=== PATIENT | male | born 1950 | race Caucasian/White ===

== ENCOUNTER → 2019-07-07 | Outpatient (CLI) | payer BC | END | disposition home or self-care (01) | LOC: LABPAT 07:57 | PROVIDERS: ATTEND Orthopaedic Surgery | DX: Z01.812 Encounter for preprocedural laboratory examination (principal); M16.11 Unilateral primary osteoarthritis, right hip | CPT/HCPCS: 87070 ==

== ENCOUNTER 2019-07-17 08:38 | Inpatient (IN) | payer BC, MEDICARE ==
[2019-07-05 16:06] VITALS: BMI 26.5
--- NOTE | 2019-07-16 11:22 | HP ---
HISTORY AND PHYSICAL REASON FOR ADMISSION: Surgery scheduled for 07/17/2019. Ilir Mccann is a 69-year-old patient seen with symptomatic right hip osteoarthritis. We discussed options for treatment. He elected to proceed with right total hip arthroplasty. Consent regarding the procedure was obtained. Clearance was provided by Dr. Yeison Kim. PAST MEDICAL HISTORY: Lhd-cakiseu-zjxzktxgx diabetes, hypertension. PAST SURGICAL HISTORY: Noncontributory. DAILY MEDICATIONS: [place], lisinopril. ALLERGIES: None. SOCIAL HISTORY: Denies current tobacco use. PHYSICAL EXAMINATION: Evaluation of the right hip: He has diffuse pain. Very limited range of motion with significant pain. Positive hip impingement sign. Straight leg raise negative. His distal neurovascular exam is intact. RADIOGRAPHS: Right hip radiographs reveal severe osteoarthritic changes. IMPRESSION: 1. Right hip osteoarthritis. 2. Hypertension. 3. Mcb-cyzdlww-jamwqhokt diabetes. 4. Chronic opioid use. PLAN: Right total hip arthroplasty. Surgery scheduled for 07/16. MMODL / IJN: [id number] /
[~2019-07-17 08:38] MED LIST: ACETAMINOPHEN TAB 500 MG TAB PO ONE; HYDROmorphone 0.5 MG/0.5 ML SYRINGE IVP PRN; LACTATED RINGERS 1,000 ML IV SCH; MELOXICAM 7.5 MG TAB PO ONE; ONDANSETRON 4 MG/2 ML VIAL IVP ONE; ROPIVACAINE 246.25 MG, EPINEPHrine 0.5 MG, KETOROLAC 30 MG, cloNIDine HCL/PF 80 MCG, WA... MISCELLANE ONE; TRANEXAMIC ACID 1,000 MG in SODIUM CHLORIDE 0.9% 100 ML IVPB ONE
[2019-07-17 12:02] LABS: Glucose,Whole Blood 115 mg/dL (75-99)
[2019-07-17] MEDS ORDERED: LIDOCAINE 1% (10MG/ML) FOR IV START INTRADERMA ONE (12:10)
[2019-07-17] MEDS ORDERED: LACTATED RINGERS 1,000 ML IV ONE ×3 (12:11→16:22)
[2019-07-17] MEDS ORDERED: fentaNYL (PF) 50 MCG/ML 2 ML AMP ONE (13:25)
[2019-07-17] MEDS ORDERED: PROPOFOL 10 MG/ML 20 ML VIAL IV ONE (13:25)
[2019-07-17] MEDS ORDERED: MIDAZOLAM 2 MG/2 ML VIAL ONE (13:25)
--- NOTE | 2019-07-17 15:15 | FL ---
EXAMINATION TYPE: FL guidance operating room, XR Hip Limited RT DATE OF EXAM: 07/17/2019 CLINICAL HISTORY: Right hip pain and osteoarthritis. TECHNIQUE: Fluoroscopy. Limited intraoperative views right hip. COMPARISON: Outside right hip x-ray June 23, 2019.. FINDINGS: Fluoroscopic guidance was provided during hip replacement procedure performed by Dr. French blair. A total of 22 seconds of fluoroscopic time was utilized during the procedure and single spot i ntraoperative image is acquired. Single image acquired shows metallic hardware from total hip arthroplasty satisfactory in position on frontal projection. IMPRESSION: As Above.
--- NOTE | 2019-07-17 15:26 | P.OP ---
Date of Procedure: 07/17/19 Preoperative Diagnosis: Right hip osteoarthritis Postoperative Diagnosis: Right hip osteoarthritis Procedure(s) Performed: Direct anterior right total hip arthroplasty Implants: 1. Depuy Corail KA size 10 standard collar press-fit femoral stem 2. Depuy pinnacle 56 mm press-fit acetabular shell 3. Depuy pinnacle neutral polyethylene acetabular liner 36 mm ID 56 mm OD 4. Biolox delta ceramic femoral head +1.5 36 mm Anesthesia: local, spinal Surgeon: Jose Manuel Ashley Blocker Automatic #1: Pawan Pastrana Estimated Blood Loss (ml): 125 Pathology: other (Femoral head) Condition: stable Disposition: PACU Indications for Procedure: 69-year-old patient seen with symptomatic right hip osteoarthritis. After treatment options were discussed with him, he elected to proceed with total hip arthroplasty. Operative Findings: See description of procedure Description of Procedure: The patient was taken to the operative suite. Patient underwent a spinal anesthetic by the department of anesthesia. Patient was then transferred to the [place] table. Patient was given preoperative IV antibiotics and TXA. Both lower extremities were placed in standard leg spars. The hip was then prepped and draped in the normal sterile orthopedic fashion. A standard anterior incision was made beginning 3 cm lateral and 1 cm distal to the ASIS extending 10 cm. Dissection was then carried down through the subcutaneous soft tissues down to the fascia overlying the tensor fascia claire. An incision was now made through the fascia. Careful dissection was taken down exposing the tensor fascia claire muscle. A Cobra retractor was now placed along the medial femoral neck and a second one along the lateral femoral neck. The venous circumflex vessels were now identified, cauterized and clipped. We identified the anterior hip capsule. An incision was made through the hip capsule along the lateral border. I performed a partial anterior capsulectomy. Retractors were now placed around the femoral neck itself. A femoral neck cut was now made with a sagittal saw. It was completed with an osteotome at the lateral neck area. The femoral head was now removed without difficulty. The extremity was now rotated to 60 of external rotation. It was locked in position. Residual labrum was now debrided out. Serial reaming was performed of the acetabulum while Hernesto YUEN assisted holding an anterior retractor for exposure. Once we reached the appropriate size and a trial was position and fit nicely. The appropriate size was now chosen opened and made available. It was introduced into the acetabulum without difficulty. The C-arm/fluoroscopy was now brought into the operative field. We made sure we had a true AP pelvic view. We now under direct C- arm/fluoroscopy introduced into the acetabular component with appropriate version and inclination. I held the cup in appropriate position well Hernesto YUEN used a mallet to seat the acetabular component. I noted the component now to be well seated and stable. Acetabular cup introduce her was removed. The C-arm was pulled back. An appropriate liner was introduced and clicked into position. It was felt to be stable. At this point retractors were removed. The extremity was now placed into 130 external rotation with no traction. The leg was now dropped to the ground and adducted. Appropriate retractors were now positioned along the proximal femur. We also placed our femoral look into position. Additional capsular releasing was performed to gain access to the proximal femur. We now used a box osteotome. A canal finder was now utilized. Serial broaching was now performed with the assistance of Hernesto YUEN tapping the broaches down with a mallet while held the broach in appropriate rotation and position. This was done until we reached the appropriate size with good overall rotational stability. Appropriate calcar planing was performed. A trial head/neck was placed into position. The hip was now reduced. The C- arm/fluoroscopy was brought back into the operative field. An AP pelvis was first obtained to make sure we had reasonable leg length, it appeared to be the case. I then reviewed the trial components which appear to be satisfactorily positioned. The C-arm/fluoroscopy was pulled back. Retractors were repositioned and the hip was dislocated. The leg was again taken down to the ground and adducted. Appropriate retractors were repositioned as well as the femoral hook. All trial components were removed. The femoral implant was opened along with the femoral head. The femoral implant was introduced on the appropriate handle into our pre-broached area. I held the component position well Hernesto YUEN used a mallet to seat the femoral component. The femoral component was now noted to be well seated and stable.. The femoral head was introduced with good positioning and fixation noted. Retractors were now removed. The hip was now reduced. There appeared be good positioning of the hip confirmed on intraoperative fluoroscopy. Spot films were obtained to document this. A second gram of TXA was given. The deep and superficial soft tissues were infiltrated with local analgesic. Bipolar cautery had been utilized intermittently through the procedure for hemostasis. The wound was irrigated copiously with pulse lavage mechanical irrigation. The fascia was repaired with Vicryl suture. The subcutaneous soft tissues were repaired in layers with Vicryl suture. The skin was approximated with pernio/Dermabond. Sterile dressings were applied. Patient was then awakened, transferred to a bed and taken to recovery in stable condition. Hernesto YUEN assisted with the complex procedure.
[2019-07-17] MEDS ORDERED: NALOXONE 0.4 MG/ML 1 ML VIAL IV PRN (15:27)
[2019-07-17] MEDS ORDERED: HYDROcodone/APAP 5-325MG 1 EACH TAB PO PRN ×2 (15:27)
[2019-07-17] MEDS ORDERED: HYDROmorphone 0.5 MG/0.5 ML SYRINGE IVP PRN ×3 (15:27)
[2019-07-17] MEDS ORDERED: ONDANSETRON 4 MG/2 ML VIAL IVP PRN (15:27)
[2019-07-17] MEDS ORDERED: HYDROcodone/APAP 10-325MG 1 EACH TAB PO PRN (16:01)
[2019-07-17] MEDS ORDERED: SENNOSIDES-DOCUSATE SODIUM 1 EACH TAB PO SCH (21:00)
[2019-07-17] MEDS: LACTATED RINGERS 1,000 ML IV SCH (21:01)
[2019-07-17] MEDS: HYDROcodone/APAP 10-325MG 1 EACH TAB PO PRN (21:02)
[2019-07-18 01:09] LABS: Glucose,Whole Blood 191 mg/dL (75-99)
[2019-07-18] MEDS: LACTATED RINGERS 1,000 ML IV SCH (04:07)
[2019-07-18 07:43] VITALS: BP 107/68; PULSE 80; RESP 16; TEMP 98.3
[2019-07-18 07:48] LABS: Basophils % (A) 0 %; Eosinophils # (A) 0.1 k/uL (0-0.7); Eosinophils % (A) 1 %; HCT 37.9 % (39.0-53.0); HGB 12.8 gm/dL (13.0-17.5); Lymphocytes # (A) 2.2 k/uL (1.0-4.8); Lymphocytes % (A) 16 %; MCH 30.8 pg (25.0-35.0); MCHC 33.8 g/dL (31.0-37.0); MCV 91.3 fL (80.0-100.0); Monocytes # (A) 0.8 k/uL (0-1.0); Monocytes % (A) 6 %; Neutrophils # (A) 10.7 k/uL (1.3-7.7); Neutrophils % (A) 77 %; Platelet Count 254 k/uL (150-450); RBC 4.15 m/uL (4.30-5.90); RDW 13.1 % (11.5-15.5); WBC 13.9 k/uL (3.8-10.6)
[2019-07-18] MEDS ORDERED: MELOXICAM 7.5 MG TAB PO SCH (09:00)
[2019-07-18] MEDS ORDERED: ENOXAPARIN 40 MG/0.4 ML SYRINGE SQ SCH (09:00)
[2019-07-18] MEDS ORDERED: FAMOTIDINE 20 MG TAB PO SCH (09:00)
--- NOTE | 2019-07-18 10:27 | P.PN ---
Subjective Progress Note Date: 07/18/19 Principal diagnosis: status post direct anterior right total hip arthroplasty Patient was evaluated at bedside today, he is resting comfortably. He has ambulated parallel with physical therapy. His pain is well-controlled. Patient denies any chest pain, shortness of breath, fever or chills. Objective - Vital Signs Vital signs: Vital Signs Temp 98.3 F 07/18/19 07:42 Pulse 80 07/18/19 07:42 Resp 16 07/18/19 07:42 BP 107/68 07/18/19 07:42 Pulse Ox 96 07/18/19 07:42 Intake & Output 07/17/19 07/18/19 07/18/19 18:59 06:59 18:59 Intake Total 2049 Output Total 125 1000 Balance 1924 -999 Weight 82.3 kg Intake: IV 2049 Output: Urine 1000 Estimated Blood Loss 125 Other: Voiding Method Toilet Toilet # Voids 2 - Exam Right lower extremity: Incision is clean, dry, and intact. The exofin fusion tape is in good condition. There is minimal soft tissue swelling and ecchymosis surrounding the medial and lateral aspects of the incision. Calf is soft, no tenderness with palpation. Plantar flexion, dorsiflexion, EHL, FHL are intact. Sensory exam to light touch throughout the extremity is intact, dorsal pedis pulses 2+. - Labs CBC & Chem 7: 07/18/19 06:50 Labs: Abnormal Lab Results - Last 24 Hours (Table) 07/17/19 07/18/19 07/18/19 Range/Units 12:00 01:00 06:50 WBC 13.9 H (3.8-10.6) k/uL RBC 4.15 L (4.30-5.90) m/uL Hgb 12.8 L (13.0-17.5) gm/dL Hct 37.9 L (39.0-53.0) % Neutrophils # 10.7 H (1.3-7.7) k/uL POC Glucose (mg/dL) 115 H 191 H (75-99) mg/dL Assessment and Plan Assessment: Postoperative day #1 status post direct anterior right total hip arthroplasty Plan: pain control, patient does take [place] 10 mg/325 mg home, he was instructed to resume that medication GI and DVT prophylaxis, aspirin 81 mg twice a day for 1 month Wound care instructions were discussed Icing and elevating techniques discussed Home physical therapy and nursing after discharge Medical recommendations Plan for discharge home today
--- NOTE | 2019-07-18 10:28 | P.DS ---
Providers Date of admission: 07/17/19 11:25 Expected date of discharge: 07/18/19 Attending physician: Jose Manuel Ashley Consults: 07/17/19 15:27 Consult Physician Routine Consulting Provider: Yeison Kim Consult Reason/Comments: Medical management Do you want consulting provider notified?: Yes Primary care physician: Yeison Kim Hospital Course: Date of admission: 07/17/2019 Date of discharge: 07/18/2019 Admission diagnosis: Status post direct anterior right total hip arthroplasty Discharge diagnosis: Same Attending physician: Dr. Ashley Surgical procedures: Direct anterior right total hip arthroplasty Brief history: Patient is a 69-year-old male with a history of progressive primary right hip osteoarthritis. At this point patient has failed conservative treatment measures and has opted to proceed with a elective direct anterior right total hip arthroplasty. Hospital course: Details of patient's surgery can be found in operative report. Patient tolerated the procedure well and was subsequently transported to orthopedic floor. Patient's orthopeidc and medical care was provided daily. Patient had daily laboratory tests performed for evaluation of overall blood counts. Patient had daily physical therapy to include strengthening range of motion as well as education with walker ambulation. Patient was treated with Lovenox for their postoperative DVT prophylaxis during their inpatient stay. Patient was noted to have a relatively uneventful postoperative course. Patient reported satisfactory pain control with oral pain medications by postoperative day 0. Patient showed satisfactory progress with physical therapy. Patient moved steadily through the program and had no difficulty meeting the goals by postoperative day 1. Given patient's otherwise satisfactory course and having met physical therapy goals, plan is to discharge patient home on postoperative day 1. Discharge condition/disposition: Patient will be discharged home in stable co ndition. Discharge medications: Instructions are given on resumption of patient's normal daily medications per primary care recommendation, in addition patient will be prescribed aspirin 81 mg. Discharge instructions: 1. Wound care and infection precautions, keep incision dry and covered while showering, no lotions, creams, moisturizers. No soaking, tubs, pools, hottubs. Do not scrub over the incision. 2. Weight-bear as tolerated with walker / cane until follow-up. 3. Ice and elevate when necessary. Do not exceed 20 minutes per hour with ice pack. 4. Utilize compression sleeve until seen at first follow up appointment. 5. Visiting nursing care. 6. Home physical therapy. 7. Pain meds and anticoagulants per prescription. 8. Pain medication has potential to cause constipation. Increase oral fluid and fiber intake. Contact primary care provider if you have not had a bowel movement within 48 hours after discharge 9. No anti-inflammatory medication until discussed at first post operative visit, this including Motrin, Aleve, Mobic, Diclofenac. 10. Follow up in office at 2 weeks postop with Hernesto Pastrana PA-C 11. Follow up with your primary care doctor 7-10 days after discharge. 12. Contact [facility] with any questions, . Procedures: Direct anterior right total hip arthroplasty Patient Condition at Discharge: Good Plan - Discharge Summary Discharge Rx Participant: No New Discharge Prescriptions: New Aspirin [Adult Low Dose Aspirin EC] 81 mg PO BID #60 tablet.dr Johnson Action HYDROcodone/APAP 10-325MG [[place] 10-325] 1 tab PO HS Lisinopril 40 mg PO DAILY Discharge Medication List HYDROcodone/APAP 10-325MG [[place] 10-325] 1 tab PO HS 03/12/15 [History] Lisinopril 40 mg PO DAILY 07/05/19 [History] Aspirin [Adult Low Dose Aspirin EC] 81 mg PO BID #60 tablet. 07/18/19 [Rx] Follow up Appointment(s)/Referral(s): Yeison Kim MD [Primary Care Provider] - 1 Week Pawan Pastrana PAC [PHYSICIAN MARINE ENGINE MECHANIC] - 08/02/19 1:30 pm () Activity/Diet/Wound Care/Special Instructions: Orthopedic Discharge Instructions: 1. Wound care and infection precautions, keep incision dry and covered while showering, no lotions, creams, moisturizers. No soaking, pools, hot tubs. Do not scrub over incision. 2. Weight-bear as tolerated with walker / cane until follow-up. 3. Ice and elevate when necessary. Do not exceed 20 minutes per hour with ice pack. 4. Utilize compression sleeve until seen at first follow up appointment. 5. Pain meds and anticoagulants per prescription. 6. Pain medication has potential to cause constipation. Increase oral fluid and fiber intake. Contact primary care provider if you have not had a bowel movement within 48 hours after discharge. 7. No anti-inflammatory medication until discussed at first post operative visit, this including Motrin, Aleve, Mobic, Diclofenac. 8. Follow up in office at 2 weeks postop with Hernesto Pastrana PA-C 9. Follow up with your primary care doctor 7-10 days after discharge. 10. Contact [facility] with any questions, . Discharge Disposition: HOME WITH HOME HEALTH SERVICES
[2019-07-18] MEDS: HYDROcodone/APAP 10-325MG 1 EACH TAB PO PRN (10:36)
== END 2019-07-18 12:50 | disposition home or self-care (01) | DRG 470 ==
LOC: 2ORMAIN 11:25 → EDSTATUS 12:55 → 4SSUR 16:19
PROVIDERS: ADMIT Orthopaedic Surgery; ATTEND Orthopaedic Surgery
PROC: 0SR904A Replacement of Right Hip Joint with Ceramic on Polyethylene Synthetic Substitute, Uncemented, Open Approach (ICD-10-PCS; principal; 2019-07-17 12:55)
DX: M16.11 Unilateral primary osteoarthritis, right hip (principal); E11.9 Type 2 diabetes mellitus without complications; I10 Essential (primary) hypertension; G31.84 Mild cognitive impairment of uncertain or unknown etiology; N40.1 Benign prostatic hyperplasia with lower urinary tract symptoms; R35.0 Frequency of micturition; E66.3 Overweight; Z68.26 Body mass index [BMI] 26.0-26.9, adult; Z87.891 Personal history of nicotine dependence; Z79.84 Long term (current) use of oral hypoglycemic drugs; Z79.891 Long term (current) use of opiate analgesic; Z79.899 Other long term (current) drug therapy
CPT/HCPCS: 36415; 73501; 85025; 86850; 86900; 86901; 88300

== ENCOUNTER → 2020-02-19 | Outpatient (CLI) | payer BC ==
--- NOTE | 2020-02-23 19:48 | HM ---
HOLTER MONITOR REPORT REFERRING: Dr. Kim. INDICATION: Palpitations. The patient was monitored for 24 hours. The baseline rhythm appeared to be sinus with a minimum heart rate of 46, max 120 and average of 70 beats per minute. Ventricular ectopic events presented in less than 1% of the total beats count. Supraventricular ectopic events presented in less than 1% of the total beats count and presented mainly as PACs and one episode of nonsustained atrial tachycardia noted. No evidence of any sinus pause or sinus arrest seen. No evidence of any advanced AV block seen. CONCLUSION: 1. Sinus rhythm as a baseline mechanism. 2. Rare ventricular ectopic events. 3. Rare supraventricular ectopic events. 4. The patient did have one short episode of atrial tachycardia. 5. No evidence of sinus pause or sinus arrest. 6. The patient reported no symptoms. MMODL / IJN: [id number] /
== END | disposition home or self-care (01) ==
LOC: RADECHMAIN 12:13
PROVIDERS: ATTEND Family Medicine
DX: I47.1 Supraventricular tachycardia (principal)
CPT/HCPCS: 93225; 93226

== ENCOUNTER → 2021-09-03 | Outpatient (CLI) | payer BC ==
[2021-09-03 10:36] LABS: HGB 15.3 g/dL (13.0-17.0); MCH 30.1 pg (27.0-32.0); MCHC 33.3 g/dL (32.0-37.0); MCV 90.6 fL (80.0-97.0); Mean Platelet Volume 9.5 fL (9.5-12.2); NRBC Per 100 WBC 0 /100 WBCS (0.0-0.0); Platelet Count 223 X 10*3/uL (140-440); RBC 5.08 X 10*6/uL (4.40-5.60); RDW 12.9 % (11.5-14.5); WBC 7.68 X 10*3/uL (4.50-10.00)
[2021-09-03 10:58] LABS: ALT 15 U/L (10-49); AST 16 U/L (14-35); African American GFR (CKD) 99.2 (60.0-200.0); Albumin 4.7 g/dL (3.8-4.9); Albumin/Globulin Ratio 2.04 (1.60-3.17); Alkaline Phosphatase 68 U/L (41-126); BUN/Creat Ratio 21.33 Ratio (12.00-20.00); Blood Urea Nitrogen 19.2 mg/dL (9.0-27.0); Calcium 9.6 mg/dL (8.7-10.3); Carbon Dioxide 25.9 mmol/L (20.0-27.5); Chloride 100 mmol/L (96-109); Chol/HDL Ratio 4.48 Ratio; Globulin 2.3 g/dL (1.6-3.3); Glucose 163 mg/dL (70-110); LDL Cholesterol,Calculated 131.4 mg/dL (0.0-131.0); Non-African American GFR(CKD) 85.6 (60.0-200.0); Potassium 4.5 mmol/L (3.5-5.5); Sodium 138 mmol/L (135-145)
[2021-09-03 18:19] LABS: Microalbumin Creatinine Ratio <30 mg/g Creat (0-30)
== END ==
LOC: LABWHC1 07:32
PROVIDERS: ATTEND Family Medicine
DX: Z00.00 Encounter for general adult medical examination without abnormal findings (principal); E11.9 Type 2 diabetes mellitus without complications; I10 Essential (primary) hypertension; N40.0 Benign prostatic hyperplasia without lower urinary tract symptoms
CPT/HCPCS: 36415; 80053; 80061; 82043; 82570; 84153; 84439; 84443; 85027

== ENCOUNTER → 2022-09-02 | Outpatient (CLI) | payer BC ==
[2022-09-02 11:02] LABS: HCT 46.8 % (39.6-50.0); HGB 15.7 g/dL (13.0-17.0); MCH 30.6 pg (27.0-32.0); MCHC 33.5 g/dL (32.0-37.0); MCV 91.2 fL (80.0-97.0); Mean Platelet Volume 9.4 fL (9.5-12.2); NRBC Per 100 WBC 0 /100 WBCS (0.0-0.0); Platelet Count 219 X 10*3/uL (140-440); RBC 5.13 X 10*6/uL (4.40-5.60); RDW 13.1 % (11.5-14.5); WBC 7.61 X 10*3/uL (4.50-10.00)
[2022-09-02 11:16] LABS: ALT 12 U/L (10-49); AST 18 U/L (14-35); African American GFR (CKD) 102.1 (60.0-200.0); Albumin 4.7 g/dL (3.8-4.9); Albumin/Globulin Ratio 1.98 (1.60-3.17); Alkaline Phosphatase 59 U/L (41-126); BUN/Creat Ratio 14.42 Ratio (12.00-20.00); Blood Urea Nitrogen 11.9 mg/dL (9.0-27.0); Calcium 9.5 mg/dL (8.7-10.3); Carbon Dioxide 27.6 mmol/L (20.0-27.5); Chloride 102 mmol/L (96-109); Chol/HDL Ratio 3.63 Ratio; Globulin 2.4 g/dL (1.6-3.3); Glucose 130 mg/dL (70-110); LDL Cholesterol,Calculated 109.1 mg/dL (0.0-131.0); Non-African American GFR(CKD) 88.1 (60.0-200.0); Potassium 4.3 mmol/L (3.5-5.5); Sodium 140 mmol/L (135-145); Total Protein 7.1 g/dL (6.2-8.2)
== END | disposition home or self-care (01) ==
LOC: LABWHC1 07:29
PROVIDERS: ATTEND Family Medicine
DX: Z00.00 Encounter for general adult medical examination without abnormal findings (principal)
CPT/HCPCS: 36415; 80053; 80061; 82043; 82570; 84153; 84439; 84443; 85027

== ENCOUNTER 2023-04-15 15:02 | Observation (INO) | payer MEDICARE, BC ==
--- NOTE | 2023-04-15 15:30 | ED ---
General Adult HPI - General Source: patient, RN notes reviewed Mode of arrival: ambulatory Limitations: no limitations <Dimitrios Galvez - Last Filed: 04/15/23 15:29> <Brando Garcia - Last Filed: 04/15/23 19:06> - General Chief complaint: Recheck/Abnormal Lab/Rx Stated complaint: BP issues weak Time Seen by Provider: 04/15/23 15:29 - History of Present Illness Initial comments: 72-year-old male presents emergency Department chief complaint of hypertension. Patient states he does have a history of high blood pressure. Patient states she checked at home and was elevated. Patient states she is on the Cipro. Patient denies chest pain or shortness of breath (Dimitrios Galvez) - Related Data Home Medications Medication Instructions Recorded Confirmed HYDROcodone/APAP 10-325MG [[place] 1 tab PO Q6H PRN 03/12/15 04/15/23 10-325] lisinopriL 40 mg PO DAILY 07/05/19 04/15/23 Acetaminophen Tab [Tylenol Tab] 1,000 mg PO Q6HR PRN 04/15/23 04/15/23 Atorvastatin [Lipitor] 10 mg PO DAILY 04/15/23 04/15/23 metFORMIN HCL 500 mg PO BID-W/MEALS 04/15/23 04/15/23 Allergies Allergy/AdvReac Type Severity Reaction Status Date / Time No Known Allergies Allergy Verified 04/15/23 18:34 Review of Systems ROS Other: All systems not noted in ROS Statement are negative. <Dimitrios Galvez - Last Filed: 04/15/23 15:29> ROS Other: All systems not noted in ROS Statement are negative. <Brando Garcia - Last Filed: 04/15/23 19:06> ROS Statement: Those systems with pertinent positive or pertinent negative responses have been documented in the HPI. Past Medical History Past Medical History: Diabetes Mellitus, Hyperlipidemia, Hypertension, Osteoarthritis (OA) Additional Past Medical History / Comment(s): MIGRAINE HEADACHE, PAST HISTORY OF RAPID HEARTBEAT - 1 EPISODE History of Any Multi-Drug Resistant Organisms: None Reported Past Surgical History: Hernia Repair Additional Past Surgical History / Comment(s): RIGHT EYE SURGERY -WEARS A PROSTHESIS -, umbilical hernia Past Anesthesia/Blood Transfusion Reactions: No Reported Reaction, Postoperative Nausea & Vomiting (PONV) Past Psychological History: No Psychological Hx Reported Smoking Status: Never smoker Past Alcohol Use History: None Reported Past Drug Use History: None Reported - Past Family History Mother Family Medical History: No Reported History <Dimitrios Galvez - Last Filed: 04/15/23 15:29> General Exam Limitations: no limitations <Dimitrios Galvez - Last Filed: 04/15/23 15:29> General appearance: alert, in no apparent distress Head exam: Present: atraumatic, normocephalic Eye exam: Present: normal appearance, PERRL ENT exam: Present: normal exam Neck exam: Present: normal inspection. Absent: tenderness, meningismus Respiratory exam: Present: normal lung sounds bilaterally. Absent: respiratory distress, wheezes Cardiovascular Exam: Present: regular rate, irregular rhythm GI/Abdominal exam: Present: soft. Absent: distended, tenderness, guarding Extremities exam: Present: normal inspection, normal capillary refill Neurological exam: Present: alert, oriented X3, CN II-XII intact. Absent: motor sensory deficit Psychiatric exam: Present: normal affect, normal mood Skin exam: Present: warm, dry, intact. Absent: cyanosis, diaphoretic <Brando Garcia - Last Filed: 04/15/23 19:06> - General Exam Comments Initial Comments: Visual Physical Exam Vital signs reviewed General: Well-appearing, nontoxic, no acute distress. Head: Normocephalic, atraumatic Eyes: PERRLA, EOMI ENT: Airway patent Chest: Nonlabored breathing Skin: No visual rash, normal skin tone Neuro: Alert and oriented 3 Musculoskeletal: No gross abnormalities (Dimitrios Galvez) Course Vital Signs 04/15/23 04/15/23 04/15/23 15:24 17:14 17:39 Temperature 98.2 F 98.9 F Pulse Rate 101 H 94 96 Respiratory 16 18 18 Rate Blood Pressure 179/93 141/91 137/100 O2 Sat by Pulse 97 96 96 Oximetry 04/15/23 18:21 Temperature Pulse Rate 96 Respiratory 18 Rate Blood Pressure 127/91 O2 Sat by Pulse 97 Oximetry Medical Decision Making <Dimitrios Galvez - Last Filed: 04/15/23 15:29> - Lab Data Result diagrams: 04/15/23 17:11 04/15/23 17:11 <Brando Garcia - Last Filed: 04/15/23 19:06> - Medical Decision Making I completed the quick note portion of this chart signed Dimitrios Galvez PA-C (Dimitrios Galvez) Was pt. sent in by a medical professional or institution ([facility], HOUSEKEEPING ASSISTANT, urgent care, hospital, or fdc...) When possible be specific @ -No Did you speak to anyone other than the patient for history (EMS, parent, family, police, friend...)? What history was obtained from this source @ -No Did you review nursing and triage notes (agree or disagree)? Why? @ -I reviewed and agree with nursing and triage notes Were old charts reviewed (outside hosp., previous admission, EMS record, old EKG, old radiological studies, urgent care reports/EKG's, fdc records)? Report findings @ -No old charts were reviewed Differential Diagnosis (chest pain, altered mental status, abdominal pain women, abdominal pain men, vaginal bleeding, weakness, fever, dyspnea, syncope, headache, dizziness, GI bleed, back pain, seizure, CVA, palpatations, mental health, musculoskeletal)? @ -Differential Palpitations Ventricular arrhythmias, atrial arrhythmias, myocardial infarction, anemia, thyrotoxicosis, electrolyte imbalance, hypokalemia, pulmonary embolism, pulmonary disease, drugs, alcohol, anxiety, stress.... This is not meant to be an all-inclusive list. EKG interpreted by me (3pts min.). @ -[Narrow complex rhythm, uncertain if this is sinus or atrial ablation with rate control. Ventricular rate of 87, QRS duration 81, QTC [address] segment elevation. Repeat EKG at 1759, atrial fibrillation with a rate of 85, QRS duration 96, QTC [address] segment elevation. X-rays interpreted by me (1pt min.). @ -None done CT interpreted by me (1pt min.). @ -None done U/S interpreted by me (1pt. min.). @ -None done What testing was considered but not performed or refused? (CT, X-rays, U/S, labs)? Why? @ -None What meds were considered but not given or refused? Why? @ -None Did you discuss the management of the patient with other professionals (professionals i.e. , [facility], HOUSEKEEPING ASSISTANT, lab, RT, psych nurse, psychiatric social worker supervisor, art conservator, teacher, conservation enforcement officer, casework manager)? Give summary @ Case discussed with Dr. Kim who will admit Was smoking cessation discussed for >3mins.? @ -No Was critical care preformed (if so, how long)? @ -No Were there social determinants of health that impacted care today? How? (Homelessness, low income, unemployed, alcoholism, drug addiction, transportation, low edu. Level, literacy, decrease access to med. care, long-term, r ehab)? @ -No Was there de-escalation of care discussed even if they declined (Discuss DNR or withdrawal of care, Hospice)? DNR status @ -No What co-morbidities impacted this encounter? (DM, HTN, Smoking, COPD, CAD, Cancer, CVA, ARF, Chemo, Hep., AIDS, mental health diagnosis, sleep apnea, morbid obesity)? @ -[Hypertension, diabetes Was patient admitted / discharged? Hospital course, mention meds given and route, prescriptions, significant lab abnormalities, going to OR and other pe rtinent info. @ -[72-year-old male presenting with an episode of palpitations, hypertension or patient found to be in atrial fibrillation which is a new diagnosis. Chads 2 vasc score is 3. Patient started on anticoagulation emergency department. He will be admitted with cardiology on consultation. His laboratory testing is unremarkable. Undiagnosed new problem with uncertain prognosis? @ -No Drug Therapy requiring intensive monitoring for toxicity (Heparin, Nitro, Insulin, Cardizem)? @ -No Were any procedures done? @ -No Diagnosis/symptom? @ New-onset atrial fibrillation, rate controlled Acute, or Chronic, or Acute on Chronic? @ Acute Uncomplicated (without systemic symptoms) or Complicated (systemic symptoms)? @ -default Side effects of treatment? @ -No Exacerbation, Progression, or Severe Exacerbation? @ -No Poses a threat to life or bodily function? How? (Chest pain, USA, MD, pneumonia, PE, COPD, DKA, ARF, appy, cholecystitis, CVA, Diverticulitis, Homicidal, Suicidal, threat to staff... and all critical care pts) @ Yes, arrhythmia (Brando Garcia) - Lab Data Lab Results 04/15/23 04/15/23 04/15/23 Range/Units 17:11 17:11 17:39 WBC 10.1 (3.8-10.6) k/uL RBC 4.96 (4.30-5.90) m/uL Hgb 15.7 (13.0-17.5) gm/dL Hct 44.9 (39.0-53.0) % MCV 90.5 (80.0-100.0) fL MCH 31.6 (25.0-35.0) pg MCHC 34.9 (31.0-37.0) g/dL RDW 13.1 (11.5-15.5) % Plt Count 222 (150-450) k/uL MPV 7.2 Neutrophils % 68 % Lymphocytes % 22 % Monocytes % 6 % Eosinophils % 2 % Basophils % 0 % Neutrophils # 6.9 (1.3-7.7) k/uL Lymphocytes # 2.3 (1.0-4.8) k/uL Monocytes # 0.6 (0-1.0) k/uL Eosinophils # 0.2 (0-0.7) k/uL Basophils # 0.0 (0-0.2) k/uL Sodium 139 (137-145) mmol/L Potassium 4.0 (3.5-5.1) mmol/L Chloride 103 (98-107) mmol/L Carbon Dioxide 22 (22-30) mmol/L Anion Gap 14 mmol/L BUN 15 (9-20) mg/dL Creatinine 0.68 (0.66-1.25) mg/dL Est GFR (CKD-EPI)AfAm >90 (>60 ml/min/1.73 sqM) Est GFR (CKD-EPI)NonAf >90 (>60 ml/min/1.73 sqM) Glucose 166 H (74-99) mg/dL Calcium 9.7 (8.4-10.2) mg/dL Magnesium 2.0 (1.6-2.3) mg/dL Total Bilirubin 0.8 (0.2-1.3) mg/dL AST 22 (17-59) U/L ALT 17 (4-49) U/L Alkaline Phosphatase 71 (38-126) U/L Troponin I <0.012 (0.000-0.034) ng/mL NT-Pro-B Natriuret Pep pg/mL Total Protein 7.1 (6.3-8.2) g/dL Albumin 4.5 (3.5-5.0) g/dL 04/15/23 Range/Units 17:39 WBC (3.8-10.6) k/uL RBC (4.30-5.90) m/uL Hgb (13.0-17.5) gm/dL Hct (39.0-53.0) % MCV (80.0-100.0) fL MCH (25.0-35.0) pg MCHC (31.0-37.0) g/dL RDW (11.5-15.5) % Plt Count (150-450) k/uL MPV Neutrophils % % Lymphocytes % % Monocytes % % Eosinophils % % Basophils % % Neutrophils # (1.3-7.7) k/uL Lymphocytes # (1.0-4.8) k/uL Monocytes # (0-1.0) k/uL Eosinophils # (0-0.7) k/uL Basophils # (0-0.2) k/uL Sodium (137-145) mmol/L Potassium (3.5-5.1) mmol/L Chloride (98-107) mmol/L Carbon Dioxide (22-30) mmol/L Anion Gap mmol/L BUN (9-20) mg/dL Creatinine (0.66-1.25) mg/dL Est GFR (CKD-EPI)AfAm (>60 ml/min/1.73 sqM) Est GFR (CKD-EPI)NonAf (>60 ml/min/1.73 sqM) Glucose (74-99) mg/dL Calcium (8.4-10.2) mg/dL Magnesium (1.6-2.3) mg/dL Total Bilirubin (0.2-1.3) mg/dL AST (17-59) U/L ALT (4-49) U/L Alkaline Phosphatase (38-126) U/L Troponin I (0.000-0.034) ng/mL NT-Pro-B Natriuret Pep 117 pg/mL Total Protein (6.3-8.2) g/dL Albumin (3.5-5.0) g/dL Disposition <Dimitrios Galvez - Last Filed: 04/15/23 15:29> Is patient prescribed a controlled substance at d/c from ED?: No Time of Disposition: 19:06 <Brando Garcia - Last Filed: 04/15/23 19:06> Clinical Impression: New onset atrial fibrillation Disposition: ADMITTED IP TO THIS HOSP Condition: Stable Referrals: Yeison Kmi MD [Primary Care Provider] - 1-2 days
[2023-04-15 17:37] LABS: Basophils % (A) 0 %; Eosinophils # (A) 0.2 k/uL (0-0.7); Eosinophils % (A) 2 %; HCT 44.9 % (39.0-53.0); HGB 15.7 gm/dL (13.0-17.5); Lymphocytes # (A) 2.3 k/uL (1.0-4.8); Lymphocytes % (A) 22 %; MCH 31.6 pg (25.0-35.0); MCHC 34.9 g/dL (31.0-37.0); MCV 90.5 fL (80.0-100.0); Mean Platelet Volume 7.2; Monocytes # (A) 0.6 k/uL (0-1.0); Monocytes % (A) 6 %; Neutrophils # (A) 6.9 k/uL (1.3-7.7); Neutrophils % (A) 68 %; Platelet Count 222 k/uL (150-450); RBC 4.96 m/uL (4.30-5.90); RDW 13.1 % (11.5-15.5); WBC 10.1 k/uL (3.8-10.6)
[2023-04-15 17:58] LABS: ALT 17 U/L (4-49); AST 22 U/L (17-59); African American GFR (CKD) >90 (>60 ml/min/1.73 sqM); Albumin 4.5 g/dL (3.5-5.0); Alkaline Phosphatase 71 U/L (38-126); Anion Gap 14 mmol/L; Blood Urea Nitrogen 15 mg/dL (9-20); Calcium 9.7 mg/dL (8.4-10.2); Carbon Dioxide 22 mmol/L (22-30); Chloride 103 mmol/L (98-107); Glucose 166 mg/dL (74-99); Non-African American GFR(CKD) >90 (>60 ml/min/1.73 sqM); Sodium 139 mmol/L (137-145); Total Bilirubin 0.8 mg/dL (0.2-1.3); Total Protein 7.1 g/dL (6.3-8.2)
[2023-04-15] MEDS ORDERED: ASPIRIN 325 MG TAB PO STA (18:40)
[2023-04-15] MEDS ORDERED: NALOXONE 0.4 MG/ML 1 ML VIAL IV PRN (19:03)
[2023-04-15 19:04] LABS: Partial Thromboplastin Time 24.8 sec (22.0-30.0); Prothrombin Time 11.3 sec (10.0-12.5)
[2023-04-15] MEDS: APIXABAN 5 MG TAB PO SCH (20:24)
[2023-04-15] MEDS: HYDROcodone/APAP 10-325MG 1 EACH TAB PO PRN (20:37)
[2023-04-16 05:49] VITALS: TEMP 98.8
[2023-04-16 07:35] VITALS: RESP 18
[2023-04-16] MEDS: HYDROcodone/APAP 10-325MG 1 EACH TAB PO PRN (07:40)
[2023-04-16] MEDS ORDERED: ACETAMINOPHEN TAB 500 MG TAB PO PRN (08:04)
[2023-04-16] MEDS ORDERED: HYDROcodone/APAP 10-325MG 1 EACH TAB PO PRN (08:04)
[2023-04-16] MEDS: APIXABAN 5 MG TAB PO SCH (08:04)
[2023-04-16] MEDS ORDERED: DEXTROSE 50% SYRINGE 50 ML IVP PRN ×2 (08:08)
--- NOTE | 2023-04-16 08:08 | P.HPIM ---
History of Present Illness H&P Date: 04/16/23 Chief Complaint: Palpitations Is a 72-year-old white male with known history of [id number] diabetes that fairly well-controlled who came in with significant palpitations yesterday. He's had intermittent palpitations but states that it was never this persistent. The patient was evaluated in emergency room to have new onset atrial fibrillation. No dizziness no overt chest pressure but he had hypertensive urgency and was admitted for appropriate observation. No voiding difficulties. No loss of consciousness or presyncope. No dizziness stated. Review of Systems Constitutional: Denies chills, Denies fever Eyes: denies blurred vision, denies pain Cardiovascular: Reports as per HPI, Reports palpitations, Denies syncope Respiratory: Denies cough Musculoskeletal: Denies myalgias Past Medical History Past Medical History: Diabetes Mellitus, Hyperlipidemia, Hypertension, Osteo arthritis (OA) Additional Past Medical History / Comment(s): MIGRAINE HEADACHE, PAST HISTORY OF RAPID HEARTBEAT - 1 EPISODE History of Any Multi-Drug Resistant Organisms: None Reported Past Surgical History: Hernia Repair Additional Past Surgical History / Comment(s): RIGHT EYE SURGERY -WEARS A PROS THESIS -, umbilical hernia Past Anesthesia/Blood Transfusion Reactions: No Reported Reaction, Postoperative Nausea & Vomiting (PONV) Past Psychological History: No Psychological Hx Reported Smoking Status: Never smoker Past Alcohol Use History: None Reported Past Drug Use History: None Reported - Past Family History Mother Family Medical History: No Reported History Medications and Allergies Home Medications Medication Instructions Recorded Confirmed Type HYDROcodone/APAP 10-325MG [[place] 1 tab PO Q6H PRN 03/12/15 04/15/23 History 10-325] lisinopriL 40 mg PO DAILY 07/05/19 04/15/23 History Acetaminophen Tab [Tylenol Tab] 1,000 mg PO Q6HR PRN 04/15/23 04/15/23 History Atorvastatin [Lipitor] 10 mg PO DAILY 04/15/23 04/15/23 History metFORMIN HCL 500 mg PO BID-W/MEALS 04/15/23 04/15/23 History Allergies Allergy/AdvReac Type Severity Reaction Status Date / Time No Known Allergies Allergy Verified 04/15/23 18:34 Physical Exam Vitals: Vital Signs Temp Pulse Resp BP Pulse Ox 04/16/23 07:22 89 18 124/80 98 04/16/23 05:30 98.8 F 77 16 103/59 97 04/16/23 01:56 98.4 F 78 16 131/80 98 04/15/23 20:35 89 18 114/81 98 04/15/23 18:21 96 18 127/91 97 04/15/23 17:39 96 18 137/100 96 04/15/23 17:14 98.9 F 94 18 141/91 96 04/15/23 15:24 98.2 F 101 H 16 179/93 97 Intake and Output 04/15/23 04/16/23 04/16/23 22:59 06:59 14:59 Other: Weight 81.647 kg - Constitutional General appearance: cooperative, no acute distress - EENT Eyes: EOMI - Neck Neck: no lymphadenopathy - Respiratory Respiratory: bilateral: CTA - Cardiovascular Rhythm: irregularly irregular Heart sounds: normal: S1, S2 Abnormal Heart Sounds: no S3 Gallop - Gastrointestinal General gastrointestinal: soft, no tenderness - Neurologic Neurologic: CNII-XII intact Results CBC & Chem 7: 04/15/23 17:11 04/15/23 17:11 Labs: Abnormal Lab Results - Last 24 Hours (Table) 04/15/23 Range/Units 17:11 Glucose 166 H (74-99) mg/dL Assessment and Plan (1) Hypertension Current Visit: Yes Status: Acute Code(s): I10 - ESSENTIAL (PRIMARY) HYPERTENSION SNOMED Code(s): 13262568 (2) Hyperlipidemia Current Visit: Yes Status: Acute Code(s): E78.5 - HYPERLIPIDEMIA, UNS PECIFIED SNOMED Code(s): 14283343 (3) Diabetes Current Visit: Yes Status: Acute Code(s): E11.9 - TYPE 2 DIABETES MELLITUS WITHOUT COMPLICATIONS SNOMED Code(s): 96762590 (4) New onset atrial fibrillation Current Visit: Yes Status: Acute Code(s): I48.91 - UNSPECIFIED ATRIAL FIBRILLATION SNOMED Code(s): 80267345 (5) Osteoarthritis of right hip Current Visit: No Status: Acute Code(s): M16.11 - UNILATERAL PRIMARY OSTEOARTHRITIS, RIGHT HIP SNOMED Code(s): 063215273101213 Plan: Rate seems to be nominal. Check echocardiogram. I suspect the patient will need to start some form of anticoagulation. Appreciate cardiology input. Anticipate discharge in the next 24 hours if stable. Reconcile home medications.
[2023-04-16] MEDS ORDERED: metFORMIN 500 MG TAB PO SCH (08:15)
[2023-04-16] MEDS ORDERED: lisinopriL 20 MG TAB PO SCH (09:00)
[2023-04-16] MEDS ORDERED: ATORVASTATIN 10 MG TAB PO SCH (09:00)
[2023-04-16] MEDS ORDERED: METOPROLOL TARTRATE 25 MG TAB PO SCH (10:00)
[2023-04-16 10:49] VITALS: BP 115/98; PULSE 75
--- NOTE | 2023-04-16 12:01 | P.CRDCN ---
History of Present Illness History of present illness: HISTORY OF PRESENT ILLNESS: This is a 72-year-old male with a past medical history significant for diabetes, hyperlipidemia, hypertension, and former nicotine dependence. 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 We have been asked to see the patient in consult ion for new onset A. fib with RVR. Patient examined at the bedside in the emergency room. Patient states yesterday he was feeling unwell. He is unable to elaborate on his symptoms but just felt overall unwell. He states that he took his blood pressure and was found to be elevated at 185/100. He states his pulse was also around 150. He presented to the hospital for further evaluation. The patient was found to be in A. fib with RVR. He subsequently converted to sinus mechanism and is maintaining sinus mechanism at the time of examination. He was started on Eliquis. * EKG reveals A. fib with RVR * Laboratory data: Troponin negative 1. ProBNP 117. TSH 1.690. * Current home cardiac medications include lisinopril 40 mg daily and atorvastatin 10 mg at night * No previous echocardiogram or cardiac catheterization available for review in EMR REVIEW OF SYSTEMS: At the time of my exam: CONSTITUTIONAL: Denies fever or chills. HEENT: Denies blurred vision, vision changes, or eye pain. Denies hemoptysis CARDIOVASCULAR: Denies chest pain. Denies orthopnea. Denies PND. Denies palpitations RESPIRATORY: Denies shortness of breath. GASTROINTESTINAL: Denies abdominal pain. Denies nausea or vomiting. HEMATOLOGIC: Denies bleeding disorders. GENITOURINARY: Denies any blood in urine. SKIN: Denies pruitis. Denies rash. PHYSICAL EXAM: VITAL SIGNS: Reviewed. GENERAL: Well-developed in no acute distress. HEENT: Head is normocephalic. Pupils are equal, round. Sclerae anicteric. Mucous membranes of the mouth are moist. Neck supple. No JVD or thyromegaly LUNGS: Respirations even and unlabored. Lungs essentially clear to auscultation bilaterally. HEART: Regular rate and rhythm. S1 and S2 heard. ABDOMEN: Soft. Nondistended. Nontender. EXTREMITIES: Normal range of motion. No clubbing or cyanosis. Peripheral pulses intact. No lower extremity edema NEUROLOGIC: Awake and alert. Oriented x 3. ASSESSMENT: New onset paroxysmal atrial fibrillation with RVR, currently maintaining sinus mechanism Hypertension Hyperlipidemia Diabetes Former nicotine dependence PLAN: Patient has been started on Eliquis 5 mg twice a day Add metoprolol tartrate 25 mg twice a day Continue additional home cardiac medications TSH checked and within normal limits Patient is requesting to be discharged home today Will obtain 2-D echo and stress testing on an outpatient basis Patient to greens picker a 30 day event monitor at [facility] postdischarge He may be discharged home today from a cardiac standpoint Nurse practitioner note has been reviewed by physician. Signing provider agrees with the documented findings, assessment, and plan of care. Past Medical History Past Medical History: Diabetes Mellitus, Hyperlipidemia, Hypertension, Osteoarthritis (OA) Additional Past Medical History / Comment(s): MIGRAINE HEADACHE, PAST HISTORY OF RAPID HEARTBEAT - 1 EPISODE History of Any Multi-Drug Resistant Organisms: None Reported Past Surgical History: Hernia Repair Additional Past Surgical History / Comment(s): RIGHT EYE SURGERY -WEARS A PROSTHESIS -, umbilical hernia Past Anesthesia/Blood Transfusion Reactions: No Reported Reaction, Postoperative Nausea & Vomiting (PONV) Past Psychological History: No Psychological Hx Reported Smoking Status: Never smoker Past Alcohol Use History: None Reported Past Drug Use History: None Reported - Past Family History Mother Family Medical History: No Reported History Medications and Allergies Home Medications Medication Instructions Recorded Confirmed Type HYDROcodone/APAP 10-325MG [[place] 1 tab PO Q6H PRN 03/12/15 04/15/23 History 10-325] lisinopriL 40 mg PO DAILY 07/05/19 04/15/23 History Acetaminophen Tab [Tylenol] 1,000 mg PO Q6HR PRN 04/15/23 04/15/23 History Atorvastatin [Lipitor] 10 mg PO DAILY 04/15/23 04/15/23 History metFORMIN HCL 500 mg PO BID-W/MEALS 04/15/23 04/15/23 History Apixaban [Eliquis] 5 mg PO BID #60 tab 04/16/23 Rx Metoprolol Tartrate [Lopressor] 25 mg PO BID #60 tab 04/16/23 Rx Allergies Allergy/AdvReac Type Severity Reaction Status Date / Time No Known Allergies Allergy Verified 04/15/23 18:34 Physical Exam Vitals: Vital Signs Temp Pulse Resp BP Pulse Ox 04/16/23 07:22 89 18 124/80 98 04/16/23 05:30 98.8 F 77 16 103/59 97 12/01/23 01:56 98.4 F 78 16 131/80 98 04/15/23 20:35 89 18 114/81 98 04/15/23 18:21 96 18 127/91 97 04/15/23 17:39 96 18 137/100 96 04/15/23 17:14 98.9 F 94 18 141/91 96 04/15/23 15:24 98.2 F 101 H 16 179/93 97 Intake and Output 04/15/23 04/16/23 04/16/23 22:59 06:59 14:59 Other: Weight 81.647 kg Results 04/15/23 17:11 04/15/23 17:11 Cardiac Enzymes 04/15/23 04/15/23 Range/Units 17:11 17:39 AST 22 (17-59) U/L Troponin I <0.012 (0.000-0.034) ng/mL Coagulation 04/15/23 Range/Units 18:20 PT 11.3 (10.0-12.5) sec APTT 24.8 (22.0-30.0) sec CBC 04/15/23 Range/Units 17:11 WBC 10.1 (3.8-10.6) k/uL RBC 4.96 (4.30-5.90) m/uL Hgb 15.7 (13.0-17.5) gm/dL Hct 44.9 (39.0-53.0) % Plt Count 222 (150-450) k/uL Comprehensive Metabolic Panel 04/15/23 Range/Units 17:11 Sodium 139 (137-145) mmol/L Potassium 4.0 (3.5-5.1) mmol/L Chloride 103 (98-107) mmol/L Carbon Dioxide 22 (22-30) mmol/L BUN 15 (9-20) mg/dL Creatinine 0.68 (0.66-1.25) mg/dL Glucose 166 H (74-99) mg/dL Calcium 9.7 (8.4-10.2) mg/dL AST 22 (17-59) U/L ALT 17 (4-49) U/L Alkaline Phosphatase 71 (38-126) U/L Total Protein 7.1 (6.3-8.2) g/dL Albumin 4.5 (3.5-5.0) g/dL Current Medications Generic Name Dose Route Start Last Admin Trade Name Freq PRN Reason Stop Dose Admin Acetaminophen 1,000 mg 04/16/23 08:04 Acetaminophen Tab 500 Mg Tab PO Q6HR PRN Pain or Fever > 100.5 Hydrocodone Bitart/Acetaminophen 1 each 04/16/23 08:04 Hydrocodone/Apap 10-325mg 1 Each Tab PO Q6H PRN Pain Apixaban 5 mg 04/15/23 21:00 04/16/23 08:04 Apixaban 5 Mg Tab PO 5 mg BID TD Administration Protocol Atorvastatin Calcium 10 mg 04/16/23 09:00 04/16/23 08:28 Atorvastatin 10 Mg Tab PO 10 mg DAILY TD Administration Dextrose/Water 25 ml 04/16/23 08:08 Dextrose 50% Syringe 50 Ml IVP PER PROTOCOL PRN Hypoglycemia Protocol Dextrose/Water 50 ml 04/16/23 08:08 Dextrose 50% Syringe 50 Ml IVP PER PROTOCOL PRN Hypoglycemia Protocol Lisinopril 40 mg 04/16/23 09:00 04/16/23 08:28 Lisinopril 20 Mg Tab PO 40 mg DAILY TD Administration Metformin HCl 500 mg 04/16/23 08:15 04/16/23 08:28 Metformin 500 Mg Tab PO 500 mg BID-W/MEALS TD Administration Naloxone HCl 0.2 mg 04/15/23 19:03 Naloxone 0.4 Mg/Ml 1 Ml Vial IV Q2M PRN Opioid Reversal Intake and Output 04/15/23 04/16/23 04/16/23 22:59 06:59 14:59 Other: Weight 81.647 kg 04/15/23 17:11 04/15/23 17:11
--- NOTE | 2023-04-18 15:24 | P.DS ---
Providers Date of admission: 04/15/23 19:03 Attending physician: Yeison Kim Consults: 04/15/23 19:03 Consult Physician Routine Consulting Provider: Howard Daly Consult Reason/Comments: New a-fib Do you want consulting provider notified?: Yes Primary care physician: Yeison Kim - Discharge Diagnosis(es) (1) Hypertension Status: Acute (2) Hyperlipidemia Status: Acute (3) Diabetes Status: Acute (4) New onset atrial fibrillation Status: Acute (5) Osteoarthritis of right hip Status: Acute Hospital Course: This is a discharge summary on a 72-year-old white male with known history of diabetes and history of DDD who has new onset atrial fibrillation with normal ventricular response. The patient was stabilized with appropriate hydration on medication and started on anticoagulation. The patient is evaluated by cardiology and will have outpatient echocardiogram and follow-up with me in about 1 week. We had discussion about precautions taking anticoagulation. With the patient is discharged in stable condition. Patient Condition at Discharge: Stable Plan - Discharge Summary New Discharge Prescriptions: New Metoprolol Tartrate [Lopressor] 25 mg PO BID #60 tab Apixaban [Eliquis] 5 mg PO BID #60 tab Continue HYDROcodone/APAP 10-325MG [[place] 10-325] 1 tab PO Q6H PRN PRN Reason: Pain lisinopriL 40 mg PO DAILY Atorvastatin [Lipitor] 10 mg PO DAILY metFORMIN HCL 500 mg PO BID-W/MEALS Acetaminophen Tab [Tylenol] 1,000 mg PO Q6HR PRN PRN Reason: Pain Or Fever > 100.5 Discharge Medication List HYDROcodone/APAP 10-325MG [[place] 10-325] 1 tab PO Q6H PRN 03/12/15 [History] lisinopriL 40 mg PO DAILY 07/05/19 [History] Acetaminophen Tab [Tylenol] 1,000 mg PO Q6HR PRN 04/15/23 [History] Atorvastatin [Lipitor] 10 mg PO DAILY 04/15/23 [History] metFORMIN HCL 500 mg PO BID-W/MEALS 04/15/23 [History] Apixaban [Eliquis] 5 mg PO BID #60 tab 04/16/23 [Rx] Metoprolol Tartrate [Lopressor] 25 mg PO BID #60 tab 04/16/23 [Rx] Follow up Appointment(s)/Referral(s): Anibal Claire MD [Medical Doctor] - 1 Week Yeison Kim MD [Primary Care Provider] - 1-2 days Patient Instructions/Handouts: A-fib (Atrial Fibrillation) (DC) Activity/Diet/Wound Care/Special Instructions: Patient to put up event monitor at [facility] when discharged Discharge Disposition: HOME SELF-CARE
== END 2023-04-16 11:13 | disposition home or self-care (01) ==
LOC: EC 15:02 → 3SCARD 19:03
PROVIDERS: ADMIT Family Medicine; ATTEND Family Medicine
DX: I48.0 Paroxysmal atrial fibrillation (principal); I16.0 Hypertensive urgency; I10 Essential (primary) hypertension; E78.5 Hyperlipidemia, unspecified; E11.9 Type 2 diabetes mellitus without complications; M16.11 Unilateral primary osteoarthritis, right hip; G43.909 Migraine, unspecified, not intractable, without status migrainosus; Z79.84 Long term (current) use of oral hypoglycemic drugs; Z79.899 Other long term (current) drug therapy; Z87.891 Personal history of nicotine dependence; Z98.890 Other specified postprocedural states
CPT/HCPCS: 99285; 36415; 93005; 83880; 80053; 83735; 84443; 84484; 85025; 85610; 85730; G0378 ×2

== ENCOUNTER → 2023-04-22 | Outpatient (CLI) | payer MEDICARE, BC ==
[2023-04-22 16:06] LABS: Chol/HDL Ratio 2.69 Ratio; VLDL Calculation 12.34 mg/dL (5.00-40.00)
== END | disposition home or self-care (01) ==
LOC: LABWHC1 07:28
PROVIDERS: ATTEND Family Medicine
DX: E78.5 Hyperlipidemia, unspecified (principal)
CPT/HCPCS: 36415; 80061

== ENCOUNTER → 2023-07-27 | Outpatient (CLI) | payer MEDICARE, BC ==
[2023-07-27 11:12] LABS: HCT 45.4 % (39.6-50.0); HGB 15.2 g/dL (13.0-17.0); MCH 30.2 pg (27.0-32.0); MCHC 33.5 g/dL (32.0-37.0); MCV 90.1 FL (80.0-97.0); Mean Platelet Volume 9.5 FL (9.5-12.2); NRBC Per 100 WBC 0 X 10*3/uL (0.00-0.01); Platelet Count 231 X 10*3/uL (140-440); RBC 5.04 X 10*6/uL (4.40-5.60); RDW 13.3 % (11.5-14.5); WBC 7.21 X 10*3/uL (4.50-10.00)
[2023-07-27 11:24] LABS: Blood Urea Nitrogen 16.1 mg/dL (9.0-27.0); Chloride 101 mmol/L (96-109); Potassium 4.2 mmol/L (3.5-5.5); Sodium 139 mmol/L (135-145)
== END | disposition home or self-care (01) ==
LOC: LABWHC1 07:42
PROVIDERS: ATTEND Internal Medicine Interventional Cardiology
DX: Z01.812 Encounter for preprocedural laboratory examination (principal); I48.0 Paroxysmal atrial fibrillation
CPT/HCPCS: 36415; 80051; 82565; 84520; 85027

== ENCOUNTER 2023-07-29 07:39 | Day surgery (SDC) | payer MEDICARE, BC ==
[2023-07-23 12:21] VITALS: BMI 25.8
[~2023-07-29 07:39] MED LIST changes: -ACETAMINOPHEN TAB 500 MG TAB PO ONE; +ALPRAZolam 0.25 MG TAB PO PRN; +ALPRAZolam 0.5 MG TAB PO PRN; +HEPARIN SODIUM,PORCINE (1 ML) 2,500 UNIT in SODIUM CHLORIDE 0.9% 250 ML IRRIGATION PRN; +HEPARIN SODIUM,PORCINE 10,000 UNIT in SODIUM CHLORIDE 0.9% 1,000 ML IRRIGATION PRN; -HYDROmorphone 0.5 MG/0.5 ML SYRINGE IVP PRN; -LACTATED RINGERS 1,000 ML IV SCH; -MELOXICAM 7.5 MG TAB PO ONE; +NITROGLYCERIN SL TABS 0.4 MG TAB SUBLINGUAL PRN; -ONDANSETRON 4 MG/2 ML VIAL IVP ONE; -ROPIVACAINE 246.25 MG, EPINEPHrine 0.5 MG, KETOROLAC 30 MG, cloNIDine HCL/PF 80 MCG, WA... MISCELLANE ONE; +SODIUM CHLORIDE 0.9% 1,000 ML in EMPTY BAG 1 BAG IV SCH; -TRANEXAMIC ACID 1,000 MG in SODIUM CHLORIDE 0.9% 100 ML IVPB ONE
[2023-07-29] MEDS: SODIUM CHLORIDE 0.9% 1,000 ML IV ONE (07:53)
[2023-07-29] MEDS ORDERED: METOPROLOL TARTRATE 25 MG TAB PO STA (07:57)
[2023-07-29] MEDS ORDERED: lisinopriL 10 MG TAB PO STA (07:57)
[2023-07-29] MEDS: ASPIRIN 325 MG TAB PO STA (07:58)
[2023-07-29] MEDS ORDERED: ATORVASTATIN 10 MG TAB PO STA (07:59)
[2023-07-29 08:16] LABS: Glucose,Whole Blood 124 mg/dL (70-110)
[2023-07-29] MEDS ORDERED: LIDOCAINE 1% INJ 10MG/ML (20 ML MDV) ONE (08:46)
[2023-07-29] MEDS ORDERED: VERAPAMIL 2.5 MG/ML 2 ML AMP ONE (08:46)
[2023-07-29 08:50] VITALS: RESP 16; TEMP 98.2
[2023-07-29] MEDS ORDERED: HEPARIN SODIUM 1,000 UN/ML (10ML VL) ONE (08:58)
[2023-07-29] MEDS ORDERED: fentaNYL (PF) 50 MCG/ML 2 ML AMP ONE (08:59)
[2023-07-29] MEDS: fentaNYL (PF) 50 MCG/1 ML VIAL IVP ONE (09:13)
[2023-07-29] MEDS: LIDOCAINE 1% INJ 10MG/ML (20 ML MDV) SQ ONE (09:14)
[2023-07-29] MEDS: VERAPAMIL SYRINGE (5 MG/10 ML) INTRAARTER ONE (09:18)
[2023-07-29] MEDS: HEPARIN SODIUM 1,000 UN/ML (10ML VL) IV ONE (09:22)
[2023-07-29] MEDS: MIDAZOLAM 2 MG/2 ML VIAL IVP ONE (09:22)
[2023-07-29] MEDS: IOPAMIDOL-370 100ML BTL INJ ONE (09:30)
[2023-07-29] MEDS ORDERED: RX INFO: IV CONTRAST WAS GIVEN 1 EACH MISC MISCELLANE PRN (09:42)
[2023-07-29] MEDS ORDERED: SODIUM CHLORIDE 0.9% 1,000 ML IV SCH (09:45)
--- NOTE | 2023-07-29 09:48 | P.CARDCATH ---
Date of Procedure: 07/29/23 Description of Procedure: Cardiac Catheterization: The patient is a 73-year-old male with known history of hypertension, hyperlipidemia, diabetes and paroxysmal atrial fibrillation who has been complaining of progressive fatigue, had an abnormal MPI. Recommendations were made regarding cardiac catheterization, the risks and the complications were discussed with the patient who is in full understanding and agreement. Procedure Description: Patient was brought to [facility] in fasting semi-sedated state after receiving Fentanyl and Benadryl achieiving moderate conscious sedated state. Using Xylocaine Anesthesia and modified Seldinger technique, a 6-[place] sheath was introduced in the right radial artery . Subsequently, selective coronary angiography was performed using a 5-[place] 3.5 bend Jossie catheter. Multiple views of the coronary artery including hemiaxial views were obtained. The 5 [place] pigtail catheter was used to cross the aortic valve and LVEDP was calculated. Following that, catheter and sheath were removed. Hemostasis was obtained with deployment of vascular band . There was no immediate complication. Patient was returned to room in stable condition. Of note, the patient received a total of 4000 units of intravenous heparin as well as intra-arterial verapamil. Findings: Left main: This is a large size vessel, bifurcating into LAD and left circumflex, left main has no obstructive disease LAD: This is a large size vessel, reaching to the apex, giving rise to 2 diagona l branch of small caliber. The LAD in the midsegment after the takeoff of the first septal circus performer has a 20% eccentric plaque, the rest of the vessel has no high-grade stenosis. Left circumflex: This is a large nondominant vessel giving rise to a large obtuse marginal branch proximally. The left circumflex and its branches have no obstructive disease. RCA: This is a dominant vessel moderate in caliber bifurcating distally to PDA and PLV. The proximal right coronary artery has 10 to 20% plaque, the rest of the vessel has no high-grade stenosis Left Ventriculogram: Not performed Hemodynamics: There was no gradient across aortic valve, LVEDP was 16-20 mmHg Conclusion: 1. Mild obstructive disease in the LAD and the right coronary artery 2. No obstructive disease in the left circumflex 3. Right dominance 4. Mildly elevated LVEDP Recommendations: The patient will continue on his present medical regimen and resume anticoagulation. The findings and the recommendations were discussed with the patient and the family and they were in full understanding and agreement. Duration of sedation is 18 minutes.
[2023-07-29 14:03] VITALS: BP 151/73; PULSE 54
[2023-07-29] MEDS ORDERED: METOPROLOL TARTRATE 25 MG TAB PO SCH (21:00)
[2023-07-30] MEDS ORDERED: lisinopriL 20 MG TAB PO SCH (09:00)
[2023-07-30] MEDS ORDERED: ATORVASTATIN 10 MG TAB PO SCH (09:00)
== END 2023-07-29 13:02 | disposition home or self-care (01) ==
LOC: CATHCVL 07:39
PROVIDERS: ATTEND Internal Medicine Interventional Cardiology
DX: I25.10 Atherosclerotic heart disease of native coronary artery without angina pectoris (principal); I48.0 Paroxysmal atrial fibrillation; E78.2 Mixed hyperlipidemia; I10 Essential (primary) hypertension; E11.9 Type 2 diabetes mellitus without complications; F17.210 Nicotine dependence, cigarettes, uncomplicated; Z79.01 Long term (current) use of anticoagulants; Z79.899 Other long term (current) drug therapy
CPT/HCPCS: 93458; C1769 ×2; C1894; J2250; J2001; J1644; Q9967; J3010